=== PATIENT | female | born 1990 | race Hispanic/Latino ===

== ENCOUNTER 2018-03-28 08:02 | Observation (INO) | payer MEDICAID ==
[~2018-03-28] VITALS: Ht 154.9 cm; Wt 73.5 kg
[2018-03-28 08:41] LABS: APPEARANCE,URINE Clear (CLEAR); BILIRUBIN,URINE Negative (NEGATIVE); COLOR,URINE Yellow (YELLOW); GLUCOSE, URINE (UA) Negative (NEGATIVE); KETONES,URINE Negative (NEGATIVE); LEUKOCYTE ESTERASE ,URINE Negative (NEGATIVE); NITRATE,URINE Negative (NEGATIVE); OCCULT BLOOD,URINE Negative (NEGATIVE); PH,URINE 6.5 (5.0-8.0); PROTEIN,URINE Negative (NEGATIVE); UROBILINOGEN,URINE 0.2 mg/dL (0.2-1.0)
[2018-03-28] MEDS ORDERED: LACTATED RINGERS 1000ML 1,000 ML IV PRN (09:32)
[2018-03-28] MEDS ORDERED: ACETAMINOPHEN-CODEINE 300/30MG TAB PO SCH (09:37)
[2018-03-28] MEDS ORDERED: ACETAMINOPHEN-CODEINE 300/30MG TAB ONE (09:46)
== END 2018-03-28 11:30 | disposition home or self-care (01) ==
LOC: EDH 08:02 → LDH 08:24
PROVIDERS: ADMIT Obstetrics & Gynecology; ATTEND Obstetrics & Gynecology
DX: O21.2 Late vomiting of pregnancy (principal); O26.893 Other specified pregnancy related conditions, third trimester; R19.7 Diarrhea, unspecified; R51 Headache; Z3A.35 35 weeks gestation of pregnancy
CPT/HCPCS: 81003; 99285; G0378 ×3; 96360; 96361